=== PATIENT | male | born 1945 | race Native Hawaiian/Other Pacific Islander ===

== ENCOUNTER 2017-05-30 10:38 | Outpatient (CLI) | payer OTHER ==
[~2017-05-30 10:38] MED LIST: AMBIEN5 MG PO; ANAS1TAB PO; BAYER ASA325 M1 PO; CORTEF10 MG PO; DIAZ5TAB20 PO; PERCOCET1 TA3 PO; SERT50TA PO; TAMS0.4C PO; TIZA4TAB5 PO; ZOLOFT25 MG PO
== END 2017-05-30 19:20 | disposition home or self-care (01) ==
LOC: CT 10:38
DX: R41.82 Altered mental status, unspecified (principal)

== ENCOUNTER 2017-08-15 12:28 | Observation (INO) | payer OTHER ==
[~2017-08-15] VITALS: Ht 180.3 cm; Wt 70.9 kg
[2017-08-15 12:30] VITALS: BP 120/88; TEMP 98
[2017-08-15 13:15] LABS: PLATELET COUNT 271 K/uL (142-355)
[2017-08-15 13:24] LABS: POTASSIUM 3.8 mmol/L (3.6-5.2)
[2017-08-15 22:16] VITALS: BP 142/79; TEMP 98.2; Ht 180.3 cm; Wt 70.9 kg
[2017-08-15 22:26] LABS: PARTIAL THROMBOPLASTIN TIME 27.9 SECONDS (24.5-33.6)
[2017-08-16 00:23] VITALS: BP 128/75; TEMP 98
[2017-08-16 05:46] LABS: PLATELET COUNT 215 K/uL (142-355)
[2017-08-16 06:16] LABS: POTASSIUM 4.3 mmol/L (3.6-5.2)
== END 2017-08-16 10:55 | disposition home or self-care (01) ==
LOC: ED 12:28 → MED/SURG 17:43
PROVIDERS: Emergency Medicine
DX: R07.89 Other chest pain (principal); R06.02 Shortness of breath; K21.9 Gastro-esophageal reflux disease without esophagitis; R53.1 Weakness; R10.9 Unspecified abdominal pain
CPT/HCPCS: 36415; 80053; 81000; 82150; 82550; 83690; 84484; 85027; 85610; 85730; 93005; 94760; 96360; 96365; 96366; 96367; 96372; 96374; 99220; 99284; G0378; J1650; J2270; J2550; Q9963